=== PATIENT | male | born 1965 | race Two or more races ===

== ENCOUNTER 2020-07-12 16:38 | Inpatient (IN) | payer OTHER ==
[~2020-07-12] VITALS: Ht 180.3 cm; Wt 147.4 kg
[2020-07-12] MEDS ORDERED: LOSARTAN-HCTZ1 EAC1 (16:54)
[2020-07-12] MEDS ORDERED: SIMVASTATIN10 MG (16:55)
== END 2020-07-18 20:10 | disposition home or self-care (01) | DRG 177 ==
LOC: ER 16:38 → MEDJ 22:04
PROVIDERS: ADMIT Internal Medicine; ATTEND Internal Medicine
PROC: 4A033R1 Measurement of Arterial Saturation, Peripheral, Percutaneous Approach (ICD-10-PCS; 2020-07-12)
PROC: 3E0F7SF Introduction of Other Gas into Respiratory Tract, Via Natural or Artificial Opening (ICD-10-PCS; 2020-07-12)
PROC: 8E0ZXY6 Isolation (ICD-10-PCS; 2020-07-12)
PROC: 4A12X4Z Monitoring of Cardiac Electrical Activity, External Approach (ICD-10-PCS; 2020-07-12)
PROC: XW033E5 Introduction of Remdesivir Anti-infective into Peripheral Vein, Percutaneous Approach, New Technology Group 5 (ICD-10-PCS; 2020-07-12)
PROC: BW25ZZZ Computerized Tomography (CT Scan) of Chest, Abdomen and Pelvis (ICD-10-PCS; principal; 2020-07-13)
DX: U07.1 COVID-19 (principal); J12.82 Pneumonia due to coronavirus disease 2019; E66.8 Other obesity; F17.210 Nicotine dependence, cigarettes, uncomplicated; E78.49 Other hyperlipidemia; R09.02 Hypoxemia; E11.9 Type 2 diabetes mellitus without complications; Z20.822 Contact with and (suspected) exposure to COVID-19